=== PATIENT | female | born 1960 | race Caucasian/White ===

== ENCOUNTER 2020-05-26 10:00 | Observation (INO) | payer OTHER ==
[~2020-05-26] VITALS: Ht 160 cm; Wt 71.7 kg
--- NOTE | 2020-05-26 10:20 | NUR ---
PT CHANGED TO GOWN. AO X 3. SKIN PINK WARM AND DRY. REPORTS ABDOMINAL PAIN, FREQUESNT URINATION AND CONSITPATION X 3 DAYS.
--- NOTE | 2020-05-26 10:20 | NUR ---
PT AMBULATORY TO ROOM 8, SENT TO BR FOR URINE SPECIMEN COLLECTION.
[2020-05-26 10:56] LABS: HEMATOCRIT 41.7 % (37.0-47.0); HEMOGLOBIN 13.1 g/dl (12.0-16.0); IMMATURE GRANULOCYTES 0.4 % (0.0-5.0); MEAN CELL VOLUME 86.7 fL CALC (80.0-100.0); MEAN CORPUSCULAR HGB 27.2 pG CALC (26.0-32.0); MEAN CORPUSCULAR HGB CONC 31.4 g/dL CAL (32.0-36.0); NEUT# 7.91 thou/uL (2.00-7.15); RED BLOOD COUNT 4.81 mill/uL (4.20-5.60); RED CELL DISTRI WIDTH 15.1 % (11.5-15.5)
[2020-05-26 11:02] LABS: URINE BILIRUBIN - DIPSTICK NEGATIVE (NEGATIVE); URINE BLOOD DIPSTICK MODERATE (NEGATIVE); URINE COLOR YELLOW; URINE GLUCOSE - DIPSTICK NEGATIVE (NEGATIVE); URINE KETONE NEGATIVE (NEGATIVE); URINE PH 6.5 (4.5-8.0); URINE PROTEIN - DIPSTICK 100 mg/dL (NEG-TRACE); URINE UROBILINOGEN - DIPSTICK 0.2 E.U./dL (0.2)
[2020-05-26 11:03] LABS: URINE LEUK ESTERASE LARGE (NEGATIVE); URINE NITRITE - DIPSTICK POSITIVE (Negative)
[2020-05-26 11:04] LABS: URINE BACTERIA MANY hpf; URINE EPITHELIAL CELLS MANY EPI/hpf (0-FEW); URINE WBC 50-100 WBC/hpf (0-5)
[2020-05-26 11:16] LABS: ALBUMIN 3.9 g/dL (3.2-5.0); ALKALINE PHOSPHATASE 145 u/l (38-126); AMYLASE 63 u/l (30-110); ANION GAP 12 (6-22 (CALC)); BILIRUBIN, TOTAL 0.7 mg/dL (0.0-1.4); BUN 8 mg/dL (7-17); BUN/CREATININE RATIO 10 (12-20 (CALC)); CARBON DIOXIDE 25 mmol/l (22-30); CHLORIDE 103 mmol/l (95-108); CREATININE 0.8 mg/dL (0.5-1.0); GFR > 60 ML/MIN (>=60 (CALC)); GFR FOR AFR.AMER. > 60 ML/MIN (>=60 (CALC)); LIPASE 108 u/l (23-300); POTASSIUM 3.7 mmol/l (3.5-5.1); SGOT/AST 87 u/l (14-36); SODIUM 136 mmol/l (137-146); TOTAL PROTEIN 7.5 g/dL (6.3-8.2)
--- NOTE | 2020-05-26 11:24 | NUR ---
PT RESTING ON STRETCHER AWAITING RESULTS
--- NOTE | 2020-05-26 11:30 | NUR ---
PT IN CT
--- NOTE | 2020-05-26 11:55 | NUR ---
PT RETURNED FROM CT. EKG DONE AND ANTIBIOTICS INFUSING
--- NOTE | 2020-05-26 13:29 | NUR ---
PT RESTING ON STRETCHER. POSITIONED FOR COMFORT. WARM BLANKET GIVEN. WAITING ULTRASOUND
--- NOTE | 2020-05-26 14:02 | NUR ---
PT RETURNED FROM CT. PAIN 10/31. POSITIONED FOR COMFORT. CALL ECKERT IN REACH
--- NOTE | 2020-05-26 14:53 | NUR ---
SBAR PRINTED TO FLOOR
--- NOTE | 2020-05-26 15:35 | NUR ---
REPORT GIVEN TO XIOMARA CHRISTOPHERELECTRIC MOTOR ASSEMBLER
--- NOTE | 2020-05-26 15:44 | NUR ---
RECIEVED REPORT FROM CANDI HERNANDEZ. PT ARRIVED TO [facility] ROOM 268 VIA PORTABLE ACCOMPAINED BY CANDI HERNANDEZ. PT AMBULATED FROM PORTABLE TO BED WITH STEADY GAIT. INTRODUCED SELF TO PT AND DISCUSSED POC. ASESSMENT AND VITALS COMPLETED AT THIS TIME. RSPIRATIONS ARE EVEN AND UNLABORED WITH NO SIGNS OF DISTRESS. LUNG SOUNDS ARE CLEAR. HEART RHYTHM IS NORMAL WITH TELE IN PLACE. BOWEL SOUNDS ARE ACTIVE. RADIAL AND PEDAL PULSES ARE STRONG WITH NORMAL CAPILLARY REFILL. #20G IN LFA FLUSHED AND STARTED ON NS PER ORDER, SITE APPEARS HEALTHY AND PATENT. SKIN IS WARM AND DRY WITH NO BREAKDOWN. PT INFORMS WRITTER THAT SHE PRESENTED TO [facility] FOR ABD PAIN AND FREQUENCY OF URINATING. PT DENIES OF ANY PAIN OR DISCOMFORTS AT THIS TIME. PT DENIES ANY BURNING OR PAIN WITH URINATING. PT ORIENTED TO ROOM AND CALL LIGHT SYSTEM. ENCOURAGED PT TO CALL FOR ASSISTANCE. PT DENIES ANY ALLERGIES, ALLERGY BAND APPLIED.PT EDUCATED ON NPO STATUS, PT VERBALIZED UNDERSTANDING. ALL SAFETY PRECAUTIONS ARE IN PLACE WITH CALL LIGHT IN REACH. WILL CONTINUE TO MONITOR.
--- NOTE | 2020-05-26 15:45 | NUR ---
PT TAKEN VIA WHEELCHAIR TELEMETRY IN PLACE TO MED SURG
[2020-05-26 15:52] VITALS: BP 118/68
--- NOTE | 2020-05-26 16:52 | NUR ---
DR JOHNSON NOTIFIED OF PT LAST BM. TAP WATER ENEMA ORDERED. ORDER WRITTEN IN CHART.
[2020-05-26] MEDS ORDERED: ADVAIR DISK1 PO (17:01)
[2020-05-26] MEDS ORDERED: OMEPRAZOLE DR40 MG PO (17:04)
[2020-05-26] MEDS ORDERED: SEROQUEL50 MG PO (17:09)
[2020-05-26] MEDS ORDERED: NORTRIPTYLINE H10 MG PO (17:11)
--- NOTE | 2020-05-26 18:12 | NUR ---
TAP WATER ENEMA ADMINISTERED AT THIS TIME. PT TOLERATED WELL. BSC IN PLACE. ALL SAFETY PRECAUTIONS ARE IN PLACE WITH ALL LIGHT IN RECH. ENCOURAGED PT TO CALL FOR ASSISTANCE
--- NOTE | 2020-05-26 18:15 | NUR ---
PT HAD VERY SMALL BM. PT REQUESTED TO CONTINUE ENEMA TO FURTHER ASSIST WITH CONSTIPATION. ENEMA CONTINUED. PT TOLERATING WELL. ALL SAFETY PRECAUTIONS IN PLACE WITH CALL LIGHT AND BSC IN PLACE. ENCOURAGED PT CALL FOR ASSISTANCE.
--- NOTE | 2020-05-26 18:46 | NUR ---
NO OTHER BM PRESENT AT THIS TIME. PT REFUSED TO CONTINUE. BSC PRESENT AT BESIDE. ALL SAFTEY PRECAUTIONS ARE IN PLACE WITH CALL LIGHT IN REACH. WILL CONTINUE TO MONITOR
--- NOTE | 2020-05-26 18:55 | NUR ---
REPORT RECEIVED FROM JAS CAGLE. PT RESTING IN BED FREE FROM DISTRESS AT THIS TIME. SAFETY PRECAUTIONS IN PLACE. WILL CONTINUE TO MONITOR.
[2020-05-26 19:00] VITALS: BP 117/62
--- NOTE | 2020-05-26 19:45 | NUR ---
PT RESTING IN BED, ALERT AND ORIENTED. RESPIRATIONS EVEN AND UNLABORED ON RA. LUNGS SOUND CLEAR. PEDAL PULSES ARE STRONG. PT DENIES ANY PAIN OR DISCOMFORT AT THIS TIME. DISSCUSSED PLAN TO REMAIN NPO. SAFETY PRECAUTIONS IN PLACE. WILL CONTINUE TO MONITOR.
--- NOTE | 2020-05-26 22:00 | NUR ---
PT RESTING IN BED. DISCUSSED PLAN OF CARE WITH PT, CONTINUE TO BE NPO, AND PT SWABBED FOR COVID 19.
[2020-05-27] VITALS (13 sets, daily range): BP systolic 101–126; BP diastolic 47–80
--- NOTE | 2020-05-27 00:30 | NUR ---
PT RESTING IN BED, RESPIRATIONS EVEN AND UNLABORED ON RA. NO S/S OF DISTRESS AT THIS TIME. WILL CONTINUE TO MONITOR.
--- NOTE | 2020-05-27 04:47 | NUR ---
PT RESTING IN BED, FREE FROM DISTRESS AT THIS TIME. CALL ECKERT WITHIN REACH. WILL CONTINUE TO MONITOR.
[2020-05-27 05:00] LABS: BILIRUBIN, TOTAL 0.8 mg/dL (0.0-1.4); TOTAL PROTEIN 6.4 g/dL (6.3-8.2)
[2020-05-27 05:09] LABS: ALBUMIN 3.1 g/dL (3.2-5.0)
--- NOTE | 2020-05-27 07:20 | NUR ---
RECIEVED REPORT FROM Annalisa MERCADO. PT RESGIN WITH EYES CLOSED UPON ENTERING ROOM. INTRODUCED SELF TO PT AND DISCUSSED POC, INCLUDED SCHEDULED LAPROSCOPIC CHOLESECETOMY AT 1000.CONSET NOT YET OBTAINED DUE TO PT NO SPEAKING WITH DOCTOR YET.PT IS A/O X3. ASSESSMENT AND VITALS COMPLETED RESPIRATIONS ARE EVEN AND UNLABROED WITH NO SIGNS OF DISTRESS NOTED. HEART RHYTHM IS NORMAL WITH TELE IN PLACE. BOWEL SOUNDS ARE ACTIVE IN ALL QUADRANTS, LAST REPORTED BM 05/22/20. MD NOTIFIED.NPO STATUS STILL REMAINS. RADIAL AND PEDAL PULSES ARE STRONG WIHT NORMAL CAPILLARY REFILL. #20G IN LEFT WRIST RUNNING WITH NS PER ORDER, SITE APPEARS HEALTHY AND PATENT. SKIN IS WARM AN DRY WITH NO BREAK DOWN. PT DENIES OF ANY PAIN RO DISCOMFORTS. ALL SAFETY PRECAUTIONS ARE IN PLACE WITH CALL LIGHT IN REACH. WILL CONTINUE TO MONITOR.
--- NOTE | 2020-05-27 09:01 | NUR ---
DR RICHARDS AT BEDSIDE DISCUSSINMG POC.
--- NOTE | 2020-05-27 09:12 | NUR ---
OBTAINED CONSENT AT THIS TIME.
--- NOTE | 2020-05-27 09:21 | NUR ---
PT BEING TRANSPORTED TO OR FOR LAPROSCOPIC CHOLESECETOMY VIA STRETCHER IN STABLE CONDITION ACCOMPAINED BY OR STAFF.
--- NOTE | 2020-05-27 11:52 | NUR ---
PT ARRIVED BACK TO [facility] ROOM 268 VIA STRETCHER IN STABLE CONDITION ACCOMPAINED BY OR STAFF. PT TRANSFERED FROM STRETCHER TO BED WITH LITTLE DIFFICULTY. RESPIRATIONS ARE EVEN AND UNLABORED WITH NO SIGNS OF DISTRESS NOTED.LUNG SOUNDS ARE CLEAR. 2L NC APPLIED ON PT, O2 SATS RESULTING IN 92%. HEART RHYTHM IS NORMAL WITH TELE RE-APPLIED.PT COMPLAINS OF 8/10 PAIN, PT TO BE MEDICATED PER EMAR. SCDS APPLIED. PT EDUCATED ON I.S PLACED AT BEDSIDE. ICE PACK PROVIDED PER ORDER. PT PLACE ON FULL LIQUID DIET AT THIS TIME, WILL ADVANCE TOLERATED.ALL SAFTEY PRCAUTIONS ARE IN PLACE WITH CALL LIGHT IN REACH. WILL CONTINUE TO MONITOR.
--- NOTE | 2020-05-27 12:58 | NUR ---
DAUGHTER OF PT CONTACTED FOR UPDATE ON PT
--- NOTE | 2020-05-27 13:21 | NUR ---
PERCOCET ADMINISTERED TO ASSIST WITH PAIN. PT REFUSED LORTAB DUE TO HAVING HISOTRY OF NAUSEA WHEN TAKING IT AND ZOFRAN NOT BEING AVAILABLE. RESPIRATIONS ARE EVEN AND UNLABORED WITH NO SIGNS OF DISTRESS. ALL SAFETY PRECAUTIONS ARE IN PLACE WITH CALL LIGHT IN REACH. WILL CONTINUE TO MONITOR
--- NOTE | 2020-05-27 14:23 | NUR ---
REASSESSMENT OF PAIN AT THIS TIME RESULTING IN 2/. RESPIRATIONS AREE EVEN ADN UNLABORED WITH NO SIGNS OF DISTRESS. ALL SAFETY PRECAUTIONS ARE IN PLACE WITH CALL LIGHT IN REACH. WILL CONTINUE TO MONITOR
--- NOTE | 2020-05-27 16:30 | NUR ---
DENIZITTER ASSSIT PT WITH AMBULATING UP AND DOWN HALLS. PT AMBULATED WITH STEADY GAIT. WRITTER ASSISTED PT BACK INTO ROOM. PT SITTING IN RECYLINER WATCHING TV. WRITTER SUGGESTED REAPPLYING OXYGEN, PT REFUSED STATING "I WILL JUST TAKE DEEPER BREATHS." RESPIRATIONS ARE EVEN AND UNLABORED WITH NO SIGNS OF DISTRESS NOTED. ALL SAFETY PRECAUTIONS ARE IN PLACE WITH CALL LIGHT IN REACH. WILL CONTINUE TO MONITOR
--- NOTE | 2020-05-27 19:01 | NUR ---
REPORT FROM KSENIA MARK. PT NOTED RESTING IN BED TALKING ON CELL PHONE. NO APPARENT DISTRESS NOTED. PT ALERT AND ORIENTED. DENIES ANY PAIN OR DISCOMFORT AT THIS TIME. IV SITE APPEARS HEALTHY WITH IVF INFUSING. TOOL DESIGN CHECKER IN PLACE. X4 INCISIONS NOTED TO ABD CLOSED WITH DERMABOND, CDI. DISCUSSED POC. PT VERBALIZED UNDERSTANNDING.
--- NOTE | 2020-05-27 23:55 | NUR ---
PT RESTING IN BED. NO APPARENT DISTRESS NOTED. RESPIRATIONS EVEN AND UNLABORED. CALL LIGHT WITHIN REACH. WILL CONTINUE TO MONITOR.
[2020-05-28 00:30] VITALS: BP 111/68
--- NOTE | 2020-05-28 03:10 | NUR ---
PT RESTING IN BED WITH EYES CLOSED. NO APPARENT DISTRESS NOTED. RESPIRATIONS EVEN AND UNLABORED. IVF INFUSING WITHOUT DIFFICULTY. CALL LIGHT WITHIN REACH. WILL CONTINUE TO MONITOR.
[2020-05-28 04:30] VITALS: BP 119/75
[2020-05-28 05:24] LABS: HEMATOCRIT 36.5 % (37.0-47.0); MEAN CELL VOLUME 89.7 fL CALC (80.0-100.0); MEAN CORPUSCULAR HGB 27.3 pG CALC (26.0-32.0); MEAN CORPUSCULAR HGB CONC 30.4 g/dL CAL (32.0-36.0); RED BLOOD COUNT 4.07 mill/uL (4.20-5.60); RED CELL DISTRI WIDTH 14.9 % (11.5-15.5)
[2020-05-28 05:29] LABS: HEMOGLOBIN 11.1 g/dl (12.0-16.0)
[2020-05-28 05:45] LABS: ALBUMIN 2.9 g/dL (3.2-5.0); ALKALINE PHOSPHATASE 99 u/l (38-126); ANION GAP 10 (6-22 (CALC)); BUN 12 mg/dL (7-17); BUN/CREATININE RATIO 17 (12-20 (CALC)); CARBON DIOXIDE 23 mmol/l (22-30); CHLORIDE 108 mmol/l (95-108); CREATININE 0.7 mg/dL (0.5-1.0); GFR > 60 ML/MIN (>=60 (CALC)); GFR FOR AFR.AMER. > 60 ML/MIN (>=60 (CALC)); SGOT/AST 75 u/l (14-36); SODIUM 137 mmol/l (137-146); TOTAL PROTEIN 5.9 g/dL (6.3-8.2)
[2020-05-28 05:46] LABS: BILIRUBIN, TOTAL 0.3 mg/dL (0.0-1.4)
--- NOTE | 2020-05-28 07:55 | NUR ---
ROMY GRANT IN TO VISIT WITH PT
[2020-05-28 08:20] VITALS: BP 102/50
--- NOTE | 2020-05-28 08:20 | NUR ---
ASSESSMENT IS COMPLETED: IV SITE IS FREE FROM REDNESS OR EDEMA. HR IS REG,PULSES ARE STRONG,X4. ABD IS SOFT WITH ACTIVE BS. BREATH SOUNDS ARE CLEAR BILATERALLY, TELE MONITOR IN PLACE. INCISIONS ARE TAMAR WITH DERMA WALLACE CDI. CONTINUE TO OSBERVE AND MONITOR.
--- NOTE | 2020-05-28 09:20 | NUR ---
DR RICHARDS IN TO VISIT WITH PT.
[2020-05-28 10:30] VITALS: BP 104/66
[2020-05-28] MEDS ORDERED: KEFLEX500 M1 PO (10:38)
--- NOTE | 2020-05-28 12:00 | NUR ---
DISCHARGE INSTRUCTIONS GIVEN AND VERBALIZED UNDERSTANDING. IV SITE DISCONTINUED CATHETER INTACT. NO REDNESS OR EDEMA. FAMILY IN THE ROOM.
[2020-05-28] MEDS ORDERED: LORTAB5 PO (12:01)
[2020-05-28] MEDS ORDERED: ZOFRAN4 MG/TAB PO (12:01)
--- NOTE | 2020-05-28 12:10 | NUR ---
Discharge instructions given. Patient verbalizes understanding of same. Discharged in stable condition via Wheelchair to Home with family. All belongings sent with pt.
== END 2020-05-28 12:08 | disposition home or self-care (01) | DRG 418 ==
LOC: ED 10:00 → ED-I 11:21 → ED 14:50 → MS2 14:51
PROVIDERS: Nurse Practitioner Family; Surgery; ADMIT Internal Medicine; ATTEND Internal Medicine
PROC: 0FT44ZZ Resection of Gallbladder, Percutaneous Endoscopic Approach (ICD-10-PCS; principal; 2020-05-27)
DX: K80.10 Calculus of gallbladder with chronic cholecystitis without obstruction (principal); N39.0 Urinary tract infection, site not specified; B96.20 Unspecified Escherichia coli [E. coli] as the cause of diseases classified elsewhere; E11.9 Type 2 diabetes mellitus without complications; J44.9 Chronic obstructive pulmonary disease, unspecified; K21.9 Gastro-esophageal reflux disease without esophagitis; M06.9 Rheumatoid arthritis, unspecified; F32.9 Major depressive disorder, single episode, unspecified; G47.30 Sleep apnea, unspecified; Z87.891 Personal history of nicotine dependence; G25.81 Restless legs syndrome; Z20.828 Contact with and (suspected) exposure to other viral communicable diseases
CPT/HCPCS: G0378; J0131; J1610; J2710; Q9967